=== PATIENT | female | born 1950 | race Caucasian/White ===

== ENCOUNTER 2016-12-07 06:30 | Inpatient (IN) | payer BC ==
[~2016-12-07] VITALS: Ht 167.6 cm; Wt 98.0 kg
[~2016-12-07 06:30] MED LIST: ALENDRONATE SOD35 MG PO; AMARYL1 MG PO; DIOVAN80 MG PO; GLUCOPHAGE500 MG PO; HYDROCHLOROTHIA25 MG PO; TOPROL XL50 MG PO; ZOCOR40 MG PO
[2016-12-07 07:06] VITALS: BP 121/72
[2016-12-07 07:41] LABS: POINT-OF-CARE METER ID UU14174212
[2016-12-07 07:51] LABS: EOSINOPHIL (%) 0.8 % (0-5); IMMATURE GRANULOCYTE (%) 0.2 % (0.0-0.7); INSTRUMENT ABS NEUTROPHIL CT 3.7 K/uL; LYMPHOCYTE COUNT 1.1 K/uL (1.0-2.8); MCH 24.1 PG (29.0-34.0); MCHC 31.2 G/DL (30.0-36.0); MCV 77.2 FL (83-99); MEAN PLAT.VOLUME 9.2 uM^3 (9.5-12.4); MONOCYTE (%) 4.4 % (3-12); MONOCYTE COUNT 0.2 K/uL (0-0.8); NEUTROPHIL (%) 72.8 % (45-76); NEUTROPHIL COUNT 3.7 K/uL (1.8-6.4); PLATELET COUNT 354 K/uL (156-360); RBC DIS.WIDTH-CV 14.8 % (11.8-14.6); RBC DIS.WIDTH-SD 40.9 % (39-53); RED BLOOD COUNT 5.44 M/uL (3.80-5.20); WHITE BLOOD COUNT 5.1 K/uL (4.1-10.2)
[2016-12-07 08:27] LABS: ANION GAP 12 MEQ/L (2-14); CHLORIDE 100 MEQ/L (99-109); GFR ESTIMATE (CALCULATED) > 59 mL/min/; GLUCOSE 141 mg/dL (70-99); POTASSIUM 3.5 MEQ/L (3.7-5.4); SAMPLE HEMOLYSIS CHECK 0; SAMPLE ICTERIC CHECK 0; SAMPLE LIPEMIA CHECK 0; SODIUM 140 MEQ/L (136-147); UREA NITROGEN (BUN) 10 mg/dL (9-23)
[2016-12-07 11:36] LABS: POINT-OF-CARE METER ID UU13113675
[2016-12-07 12:32] LABS: MCH 24.1 PG (29.0-34.0); MCHC 31.3 G/DL (30.0-36.0); MCV 77.2 FL (83-99); MEAN PLAT.VOLUME 9.1 uM^3 (9.5-12.4); PLATELET COUNT 380 K/uL (156-360); RBC DIS.WIDTH-CV 14.6 % (11.8-14.6); RED BLOOD COUNT 5.18 M/uL (3.80-5.20)
[2016-12-07 12:33] LABS: WHITE BLOOD COUNT 10.5 K/uL (4.1-10.2)
[2016-12-07 13:39] LABS: POINT-OF-CARE METER ID UU13113675
[2016-12-07 13:56] VITALS: BP 131/75
[2016-12-07 15:06] VITALS: BP 125/70
[2016-12-07 18:29] LABS: POINT-OF-CARE METER ID UU13113725
[2016-12-07 19:07] VITALS: BP 107/59
[2016-12-07 22:08] VITALS: BP 117/64
[2016-12-08 03:22] VITALS: BP 126/75
[2016-12-08 05:50] LABS: POINT-OF-CARE METER ID UU13113725
[2016-12-08 07:01] LABS: ANION GAP 6 MEQ/L (2-14); CHLORIDE 96 MEQ/L (99-109); GFR ESTIMATE (CALCULATED) > 59 mL/min/; GLUCOSE 183 mg/dL (70-99); MAGNESIUM 1.6 mg/dl (1.3-2.7); POTASSIUM 3.9 MEQ/L (3.7-5.4); SAMPLE HEMOLYSIS CHECK 0; SAMPLE ICTERIC CHECK 0; SAMPLE LIPEMIA CHECK 0; UREA NITROGEN (BUN) 8 mg/dL (9-23)
[2016-12-08 07:05] LABS: SODIUM 132 MEQ/L (136-147)
[2016-12-08 07:42] VITALS: BP 117/61
[2016-12-08 11:28] LABS: POINT-OF-CARE METER ID UU13113725
[2016-12-08 17:13] VITALS: BP 118/59
[2016-12-08 19:26] VITALS: BP 110/59
[2016-12-08 23:44] VITALS: BP 102/54
[2016-12-09] VITALS (7 sets, daily range): BP systolic 89–115; BP diastolic 52–62
[2016-12-09 00:01] LABS: POINT-OF-CARE METER ID UU13113725
[2016-12-09 07:35] LABS: HEMATOCRIT 30.9 % (36.0-46.0); MCH 23.9 PG (29.0-34.0); MCHC 30.4 G/DL (30.0-36.0); MCV 78.4 FL (83-99); RBC DIS.WIDTH-CV 14.7 % (11.8-14.6); RBC DIS.WIDTH-SD 42.4 % (39-53)
[2016-12-09 07:39] LABS: RED BLOOD COUNT 3.94 M/uL (3.80-5.20); WHITE BLOOD COUNT 5.7 K/uL (4.1-10.2)
[2016-12-09 07:45] LABS: ANION GAP 6 MEQ/L (2-14); CHLORIDE 101 MEQ/L (99-109); GFR ESTIMATE (CALCULATED) > 59 mL/min/; GLUCOSE 133 mg/dL (70-99); MAGNESIUM 1.7 mg/dl (1.3-2.7); SAMPLE HEMOLYSIS CHECK 1; SAMPLE ICTERIC CHECK 0; SAMPLE LIPEMIA CHECK 0; SODIUM 137 MEQ/L (136-147); UREA NITROGEN (BUN) 8 mg/dL (9-23)
[2016-12-09 07:46] LABS: POTASSIUM 4.2 MEQ/L (3.7-5.4)
[2016-12-09 07:48] LABS: MEAN PLAT.VOLUME 9.4 uM^3 (9.5-12.4)
[2016-12-09 07:54] LABS: PLATELET COUNT 255 K/uL (156-360)
[2016-12-10 04:07] VITALS: BP 115/68
[2016-12-10 05:51] LABS: POINT-OF-CARE METER ID UU13113725
[2016-12-10 07:00] LABS: HEMATOCRIT 30.9 % (36.0-46.0); MCH 24.1 PG (29.0-34.0); MCHC 30.4 G/DL (30.0-36.0); MCV 79.2 FL (83-99); MEAN PLAT.VOLUME 9.5 uM^3 (9.5-12.4); PLATELET COUNT 268 K/uL (156-360); RBC DIS.WIDTH-CV 14.6 % (11.8-14.6); RBC DIS.WIDTH-SD 42.4 % (39-53); WHITE BLOOD COUNT 5.1 K/uL (4.1-10.2)
[2016-12-10 07:22] LABS: ANION GAP 9 MEQ/L (2-14); CHLORIDE 105 MEQ/L (99-109); GFR ESTIMATE (CALCULATED) > 59 mL/min/; GLUCOSE 101 mg/dL (70-99); MAGNESIUM 1.9 mg/dl (1.3-2.7); POTASSIUM 4.2 MEQ/L (3.7-5.4); SAMPLE HEMOLYSIS CHECK 0; SAMPLE ICTERIC CHECK 0; SAMPLE LIPEMIA CHECK 0; SODIUM 139 MEQ/L (136-147); UREA NITROGEN (BUN) 7 mg/dL (9-23)
[2016-12-10 07:55] VITALS: BP 116/83
[2016-12-10 11:00] VITALS: BP 114/57
[2016-12-10 16:36] VITALS: BP 133/62
[2016-12-10 18:55] VITALS: BP 120/64
[2016-12-10 22:47] VITALS: BP 118/64
[2016-12-11 00:14] LABS: POINT-OF-CARE METER ID UU13113725
[2016-12-11 03:01] VITALS: BP 110/62
[2016-12-11 06:26] LABS: POINT-OF-CARE METER ID UU13113725
[2016-12-11 07:30] LABS: HEMATOCRIT 31.8 % (36.0-46.0); MCH 24.1 PG (29.0-34.0); MCHC 30.5 G/DL (30.0-36.0); MCV 79.1 FL (83-99); MEAN PLAT.VOLUME 9.1 uM^3 (9.5-12.4); PLATELET COUNT 282 K/uL (156-360); RBC DIS.WIDTH-CV 14.7 % (11.8-14.6); RBC DIS.WIDTH-SD 42.7 % (39-53); RED BLOOD COUNT 4.02 M/uL (3.80-5.20); WHITE BLOOD COUNT 5.1 K/uL (4.1-10.2)
[2016-12-11 07:54] LABS: ANION GAP 9 MEQ/L (2-14); CHLORIDE 106 MEQ/L (99-109); GFR ESTIMATE (CALCULATED) > 59 mL/min/; GLUCOSE 77 mg/dL (70-99); POTASSIUM 4.4 MEQ/L (3.7-5.4); SAMPLE HEMOLYSIS CHECK 0; SAMPLE ICTERIC CHECK 0; SAMPLE LIPEMIA CHECK 0; SODIUM 139 MEQ/L (136-147); UREA NITROGEN (BUN) 8 mg/dL (9-23)
[2016-12-11 08:12] VITALS: BP 149/65
[2016-12-11 11:09] LABS: POINT-OF-CARE METER ID UU13113725
[2016-12-11 16:08] VITALS: BP 157/71
[2016-12-11 18:51] VITALS: BP 133/83
[2016-12-11 21:43] LABS: POINT-OF-CARE METER ID UU13113725
[2016-12-11 22:37] VITALS: BP 145/77
[2016-12-12 02:22] VITALS: BP 140/69
[2016-12-12 06:08] LABS: POINT-OF-CARE METER ID UU13113725
[2016-12-12 06:45] LABS: HEMATOCRIT 31.1 % (36.0-46.0); MCH 24.1 PG (29.0-34.0); MCHC 31.2 G/DL (30.0-36.0); MCV 77.4 FL (83-99); MEAN PLAT.VOLUME 9.1 uM^3 (9.5-12.4); PLATELET COUNT 302 K/uL (156-360); RBC DIS.WIDTH-CV 14.8 % (11.8-14.6); RBC DIS.WIDTH-SD 41.2 % (39-53); RED BLOOD COUNT 4.02 M/uL (3.80-5.20); WHITE BLOOD COUNT 4.9 K/uL (4.1-10.2)
[2016-12-12 07:11] LABS: ANION GAP 8 MEQ/L (2-14); CHLORIDE 105 MEQ/L (99-109); GFR ESTIMATE (CALCULATED) > 59 mL/min/; POTASSIUM 3.9 MEQ/L (3.7-5.4); SAMPLE HEMOLYSIS CHECK 0; SAMPLE ICTERIC CHECK 0; SAMPLE LIPEMIA CHECK 0; SODIUM 139 MEQ/L (136-147); UREA NITROGEN (BUN) 7 mg/dL (9-23)
[2016-12-12 07:14] LABS: GLUCOSE 109 mg/dL (70-99)
[2016-12-12 07:36] VITALS: BP 143/70
[2016-12-12 10:48] VITALS: BP 126/75
[2016-12-12 15:22] VITALS: BP 131/62
[2016-12-12 22:22] VITALS: BP 168/74
[2016-12-12 22:32] VITALS: BP 116/58
[2016-12-13 07:03] LABS: HEMATOCRIT 29.4 % (36.0-46.0); MCV 77.6 FL (83-99); PLATELET COUNT 286 K/uL (156-360); RBC DIS.WIDTH-CV 14.8 % (11.8-14.6); RBC DIS.WIDTH-SD 41.1 % (39-53); RED BLOOD COUNT 3.79 M/uL (3.80-5.20); WHITE BLOOD COUNT 4.1 K/uL (4.1-10.2)
[2016-12-13 07:07] VITALS: BP 160/69
[2016-12-13 07:25] LABS: ANION GAP 5 MEQ/L (2-14); CHLORIDE 107 MEQ/L (99-109); GFR ESTIMATE (CALCULATED) > 59 mL/min/; GLUCOSE 114 mg/dL (70-99); MAGNESIUM 2.1 mg/dl (1.3-2.7); POTASSIUM 3.5 MEQ/L (3.7-5.4); SAMPLE HEMOLYSIS CHECK 0; SAMPLE ICTERIC CHECK 0; SAMPLE LIPEMIA CHECK 0; SODIUM 141 MEQ/L (136-147); UREA NITROGEN (BUN) 5 mg/dL (9-23)
[2016-12-13] MEDS ORDERED: HYDROCODON-ACE1 EAC7 PO (09:53)
== END 2016-12-13 13:08 | disposition home or self-care (01) | DRG 331 ==
LOC: 5EAST 06:30 → 2SOUTH 06:30 → 5EAST 13:55 → 2SOUTH 15:04 → 5EAST 12-13 13:08
PROVIDERS: Physician Assistant; Surgery
DX: C18.7 Malignant neoplasm of sigmoid colon (principal); I10 Essential (primary) hypertension; E11.9 Type 2 diabetes mellitus without complications; E83.39 Other disorders of phosphorus metabolism; Z85.43 Personal history of malignant neoplasm of ovary; Z90.710 Acquired absence of both cervix and uterus; E66.9 Obesity, unspecified; Z68.34 Body mass index [BMI] 34.0-34.9, adult; Z79.84 Long term (current) use of oral hypoglycemic drugs; Z86.718 Personal history of other venous thrombosis and embolism
CPT/HCPCS: 80048; 82378; 82948; 83735; 84100; 85025; 85027; 86850; 86900; 86901; 86920; 88309; 93005; 94799; 97530 GP; J0131; J1170; J1335; J1650; J1815; J2250; J2405; J2710; J3010; J3480; J7050; J7120

== ENCOUNTER 2017-03-19 08:58 | Emergency (ER) | payer BC ==
[~2017-03-19] VITALS: Ht 167.6 cm; Wt 94.6 kg
[~2017-03-19 08:58] MED LIST changes: +HYDROCODON-ACE1 EAC7 PO
[2017-03-19] MEDS ORDERED: FOLGARD1 TABLET PO (09:52)
[2017-03-19] MEDS ORDERED: IRON325 MG PO (09:52)
[2017-03-19] MEDS ORDERED: XELODA500 MG PO (09:53)
[2017-03-19 11:00] LABS: HEMATOCRIT 36.9 % (36.0-46.0); MCH 25.2 PG (29.0-34.0); MCHC 31.4 G/DL (30.0-36.0); MCV 80.2 FL (83-99); MEAN PLAT.VOLUME 9.2 uM^3 (9.5-12.4); PLATELET COUNT 225 K/uL (156-360); RBC DIS.WIDTH-CV 22.5 % (11.8-14.6); RBC DIS.WIDTH-SD 63.6 % (39-53)
[2017-03-19 11:02] LABS: EOSINOPHIL (%) 0.9 % (0-5); EOSINOPHIL COUNT 0.1 K/uL (0-0.3); IMMATURE GRANULOCYTE (%) 0.4 % (0.0-0.7); INSTRUMENT ABS NEUTROPHIL CT 5.1 K/uL; LYMPHOCYTE COUNT 1.4 K/uL (1.0-2.8); MONOCYTE (%) 5.6 % (3-12); MONOCYTE COUNT 0.4 K/uL (0-0.8); NEUTROPHIL (%) 72.8 % (45-76); NEUTROPHIL COUNT 5.1 K/uL (1.8-6.4)
[2017-03-19 11:07] LABS: INTER. NORMALIZED RATIO 1.1; PROTHROMBIN TIME 11.6 (9.2-11.2); PTT 25.1 (25-32)
[2017-03-19 11:16] LABS: CHLORIDE 100 mEq/L (99-109); POTASSIUM 4.1 mEq/L (3.7-5.4); SODIUM 137 mEq/L (136-147)
[2017-03-19 11:17] LABS: GLUCOSE 137 mg/dL (70-99)
[2017-03-19 11:19] LABS: ANION GAP 9 MEQ/L (2-14)
[2017-03-19 11:21] LABS: GFR ESTIMATE (CALCULATED) > 59 mL/min/
[2017-03-19 11:22] LABS: UREA NITROGEN (BUN) 11 mg/dL (9-23)
[2017-03-19] MEDS ORDERED: COUMADIN5 MG PO (11:40)
[2017-03-19] MEDS ORDERED: LOVENOX100 MG/1 M SC (12:14)
[2017-03-19 12:41] VITALS: BP 113/65
== END 2017-03-19 12:41 | disposition home or self-care (01) ==
LOC: EME 08:58
PROVIDERS: Personal Emergency Response Attendant
DX: I82.412 Acute embolism and thrombosis of left femoral vein (principal); I82.432 Acute embolism and thrombosis of left popliteal vein; I82.4Z2 Acute embolism and thrombosis of unspecified deep veins of left distal lower extremity; C18.9 Malignant neoplasm of colon, unspecified; I10 Essential (primary) hypertension; Z85.43 Personal history of malignant neoplasm of ovary
CPT/HCPCS: 80048; 85025; 85610; 85730; 93971; 99281; 99284; J1650